=== PATIENT | female | born 1955 | race African-American/Black ===

== ENCOUNTER 2018-05-15 01:14 | Observation (INO) | payer OTHER ==
[2018-05-15 02:25] LABS: Hemoglobin 13.7 g/dL (12.0-16.0); Mean Corpuscular HGB CONC 33.2 g/dL (32.0-36.0); Mean Corpuscular Hemoglobin 30.1 pg (27.0-31.0); Mean Corpuscular Volume 90.5 fL (78.0-98.0); RBC Distribution Width 11.6 % (11.5-14.5); Red Blood Cell (RBC) Count 4.55 mill/uL (4.20-5.40); White Blood Cell (WBC) Count 8.1 thou/uL (4.8-10.8)
[2018-05-15] MEDS ORDERED: hydrALAZINE 20 MG/ML VIAL ONE (02:26)
[2018-05-15 02:34] LABS: #Basophils 0.1 thou/uL (0.0-0.2); #Eosinphils 0.4 thou/uL (0.0-0.7); #Lymphocytes 3.6 thou/uL (1.20-3.40); #Monocytes 0.7 thou/uL (0.11-0.59); #Neutrophils 3.4 thou/uL (1.40-6.50); %Basophils 1.2 % (0.0-1.0); %Lymphocytes 43.7 % (21.0-51.0); %Monocytes 8.9 % (0.0-10.0); %Neutrophils 41.3 % (42.0-75.0); ALT (SGPT) 15 U/L (8-55); AST (SGOT) 14 U/L (5-34); Albumin 3.5 g/dL (3.4-4.8); Alkaline Phosphatase 87 U/L (40-150); Anion Gap 11 mmol/L (10-20); BUN (Urea Nitrogen) 15 mg/dL (9.8-20.1); Bilirubin, Total 0.2 mg/dL (0.2-1.2); Calc. Creatinine Clearance 0 mL/min (70-130); Calcium 9.1 mg/dL (7.8-10.44); Carbon Dioxide 27 mmol/L (23-31); Chloride 100 mmol/L (98-107); Estimated GFR-MDRD 48; Globulin 3.7 g/dL (2.4-3.5); Glucose 545 mg/dL (80-115); Large Platelets SLIGHT; Lipase 44 U/L (8-78); MDiff Complete? YES; Mean Platelet Volume 13.6 fL (7.4-10.4); PLT Morphology Comment Appears Decreased; Platelet Count 122 thou/uL (130-400); Potassium 3.9 mmol/L (3.5-5.1); Protein, Total 7.2 g/dL (6.0-8.3); RBC Morphology Normal; Sodium 134 mmol/L (136-145)
[2018-05-15 02:38] LABS: Troponin I Less than 0.010 ng/mL (< 0.028)
[2018-05-15] MEDS ORDERED: Insulin Regular 300 UNITS/3 ML VIAL ONE (05:16)
--- NOTE | 2018-05-15 08:14 | RAD ---
PORTABLE CHEST 1 VIEW: Date: 05/15/18 Time: 0201 hours HISTORY: Nausea and vomiting. FINDINGS: Comparison made with exam of 02/14/16. The heart size is normal. The lungs are expanded without focal areas of consolidation, pneumothorax, or pleural effusions. Chronic changes are again seen. IMPRESSION: No acute process. POS: OFF
[2018-05-15] MEDS ORDERED: Dextrose 50% Abboject 50 ML SYRINGE SLOW IVP PRN (08:27)
[2018-05-15] MEDS ORDERED: Ondansetron ODT 4 MG TAB PO PRN (08:27)
[2018-05-15] MEDS ORDERED: HumaLOG 300 UNITS/3 ML VIAL SC PRN (08:27)
[2018-05-15] MEDS ORDERED: hydrALAZINE 20 MG/ML VIAL SLOW IVP PRN (08:27)
[2018-05-15] MEDS ORDERED: Dextrose 5% in Water 1,000 ML IV PRN (08:27)
[2018-05-15] MEDS ORDERED: Acetaminophen 325 MG TAB PO PRN (08:27)
[2018-05-15] MEDS ORDERED: Labetalol HCl 100 MG/20 ML VIAL SLOW IVP PRN (08:27)
[2018-05-15] MEDS: cloNIDine 0.1 MG TAB PO PRN ×2 (09:36→17:37)
[2018-05-15] MEDS: Enoxaparin Sodium 40 MG/0.4 ML SYRINGE SC SCH (09:37)
[2018-05-15] MEDS: Sodium Chloride 0.9% 1,000 ML IV SCH ×2 (09:37→17:38)
[2018-05-15] MEDS ORDERED: Prevnar 13-Val Conj/PF 0.5 ML SYRINGE IM ONE (10:00)
--- NOTE | 2018-05-15 10:09 | HP ---
PRIMARY CARE PHYSICIAN: Dr. Alvarez. CHIEF COMPLAINT: "I just did not look right." HISTORY OF PRESENT ILLNESS: Ms. Steinberg is a very pleasant 63-year-old female that has a history of h ypertension and diabetes mellitus. She was in her usual state of health until about a week ago. She says she ran out of medications on . However, according to the ER record, she ran o ut of medicines about a month ago, but nevertheless, her fiance says that she did not look quite righ t on the day of admission and felt like he better call paramedics to come check on her. When the par amedics came, they noticed that her blood pressure was elevated and that her blood sugar was also jeremie vated above 500 and recommended that she come to the ER for evaluation. When she came to the emergen cy room, her blood sugar was running in the 500s. Her blood pressure was initially over 200 systolic and she is being placed in observation for uncontrolled blood pressure as well as diabetes mellitus. She says she does have medical insurance in order to get her prescriptions, but she was unable to g et it because she had not made an appointment with her primary care physician. She denies having any chest pain or shortness of breath, no nausea, no vomiting. She has felt a little bit dizzy and had some increased thirst, but otherwise no other complaints. REVIEW OF SYSTEMS: All systems were reviewed and are negative except for that mentioned in the histo ry of present illness. PAST MEDICAL HISTORY: Significant for diabetes mellitus type 2, hypertension, and COPD. PAST SURGICAL HISTORY: She has had a . ALLERGIES: No known drug allergies. SOCIAL HISTORY: She is a former smoker. She quit several years ago. She denies any alcohol use. S he is engaged. She has three children. She would like to be a [employer] and her daughter of her heather ce is her surrogate decision maker. FAMILY HISTORY: Significant for asthma in her mother and diabetes mellitus in her father. CURRENT MEDICATIONS: Unknown. PHYSICAL EXAMINATION: GENERAL: She is alert and oriented. She appears to be in no acute distress. She is well-developed and well-nourished. VITAL SIGNS: Blood pressure was 184/82, heart rate 97, respiratory rate of 16, temperature is 97.8. HEENT: Pupils are equal, round, and reactive. Extraocular muscles are intact. Her sclerae are anic teric. Throat; no erythema, no exudates. NECK: No adenopathy, no bruits. LUNGS: Clear to auscultation. There is no wheezing, no rales. CARDIOVASCULAR: She had a normal S1 and S2. No S3 or S4. No murmurs, clicks, no rubs. ABDOMEN: Obese, it is soft, it is nontender and nondistended. Positive for bowel sounds. There is no rebound, no guarding, no organomegaly. EXTREMITIES: She has no edema or just trace edema, no calf tenderness. No joint effusions or crepit us. Her dorsalis pedis pulses are diminished, but palpable. NEUROLOGIC: Her cranial nerves II-XII are grossly intact as well as her muscle strength in both uppe r and lower extremities. SKIN/INTEGUMENT: There are no skin changes. No rash. LABORATORY DATA AND IMAGING DATA: CBC: White blood cell count 8.1, hemoglobin 13.7, hematocrit is 4 1.2, platelet count is 122. Sodium 134, potassium 3.9, chloride is 100, CO2 is 27, BUN of 15, creati nine of 1.34, glucose is 545, beta hydroxybutyrate was negative. She had an EKG which is by chin graham. Heart rate was 82. There were some voltage criteria for LVH and some baseline artifact. Chest x-ray; heart size is normal. There is no fluid in the fissures and no evidence of any increased pulm onary vascular markings. ASSESSMENT AND PLAN: This is a pleasant 63-year-old female that is being admitted for uncontrolled h ypertension and diabetes mellitus mainly due to medical noncompliance. 1. Hypertension. We will need to call [facility] in order to reconcile her medications. W e will restart these and adjust as needed. 2. Diabetes mellitus. Also, we will need to find out the names and doses of her medications. She s aid she was on Lantus insulin and also place her on a sliding scale and adjust again medications as n eeded. 3. Chronic obstructive pulmonary disease. DuoNebs will be made available and she will also be place d on deep venous thrombosis prophylaxis. Hopefully, once she is restarted on her medications, she ca n be discharged either later on this evening or in the morning. We will also give her at least a lit er of two of IV fluids, given her uncontrolled blood glucose.
[2018-05-15] MEDS: HumaLOG 300 UNITS/3 ML VIAL SC PRN ×2 (12:01→17:38)
[2018-05-16] MEDS: Sodium Chloride 0.9% 1,000 ML IV SCH ×2 (00:55→09:49)
[2018-05-16 04:57] LABS: #Eosinphils 0.5 thou/uL (0.0-0.7); #Lymphocytes 3.3 thou/uL (1.20-3.40); #Monocytes 0.6 thou/uL (0.11-0.59); #Neutrophils 3.3 thou/uL (1.40-6.50); %Basophils 0.5 % (0.0-1.0); %Eosinophils 6.6 % (0.0-10.0); %Lymphocytes 42.3 % (21.0-51.0); %Monocytes 8.2 % (0.0-10.0); %Neutrophils 42.4 % (42.0-75.0); Hemoglobin 11.8 g/dL (12.0-16.0); Mean Corpuscular HGB CONC 32.9 g/dL (32.0-36.0); Mean Corpuscular Hemoglobin 29.8 pg (27.0-31.0); Mean Corpuscular Volume 90.5 fL (78.0-98.0); Mean Platelet Volume 14.1 fL (7.4-10.4); PLT Morphology Comment Appears Decreased; Platelet Count 110 thou/uL (130-400); RBC Distribution Width 11.5 % (11.5-14.5); RBC Morphology Normal; Red Blood Cell (RBC) Count 3.94 mill/uL (4.20-5.40); White Blood Cell (WBC) Count 7.8 thou/uL (4.8-10.8)
[2018-05-16 04:58] LABS: Anion Gap 12 mmol/L (10-20); BUN (Urea Nitrogen) 14 mg/dL (9.8-20.1); Calc. Creatinine Clearance 101 mL/min (70-130); Calcium 8.4 mg/dL (7.8-10.44); Carbon Dioxide 21 mmol/L (23-31); Chloride 107 mmol/L (98-107); Estimated GFR-MDRD 72; Glucose 275 mg/dL (80-115); Potassium 3.8 mmol/L (3.5-5.1); Sodium 136 mmol/L (136-145)
[2018-05-16] MEDS: HumaLOG 300 UNITS/3 ML VIAL SC PRN ×3 (05:59→15:14)
[2018-05-16] MEDS ORDERED: Carvedilol 25 MG TAB PO SCH (09:00)
[2018-05-16] MEDS ORDERED: INSULIN GLARGINE HUM REC ANLOG SC SCH (09:00)
[2018-05-16] MEDS ORDERED: Amlodipine 10 MG TAB PO SCH (09:00)
[2018-05-16] MEDS ORDERED: Atorvastatin Calcium 40 MG TAB PO SCH (09:00)
[2018-05-16] MEDS ORDERED: cloNIDine 0.1 MG TAB PO SCH (09:00)
[2018-05-16] MEDS: Enoxaparin Sodium 40 MG/0.4 ML SYRINGE SC SCH (11:44)
[2018-05-16] MEDS ORDERED: Lisinopril 20 MG TAB PO SCH (11:45)
[2018-05-16 11:52] VITALS: BP 178/93
[2018-05-16 12:08] VITALS: TEMP 97.9
--- NOTE | 2018-05-16 13:50 | PDOC.PN ---
- Subjective Encounter Start Date: 05/16/18 Encounter Start Time: 13:48 Ms. Steinberg was seen today in follow-up of uncontrolled diabetes and hypertension. she does not have any complaints this morning. - Objective Resuscitation Status - Order Detail: 05/15/18 12:20 Resuscitation Status Routine Resuscitation Status: FULL: Full Resuscitation Discussed with: per prior order MAR Reviewed: Yes Vital Signs & Weight: Vital Signs (12 hours) Temp Pulse Resp BP BP Pulse Ox 05/16/18 13:01 178/93 H 05/16/18 12:07 97.9 F 78 20 178/93 H 94 L 05/16/18 11:43 82 178/93 H 05/16/18 07:40 99.0 F 82 18 182/92 H 94 L 05/16/18 04:26 97.4 F L 76 16 163/92 H 94 L Weight Weight 237 lb 3.2 oz I&O: 05/15/18 05/16/18 05/17/18 06:59 06:59 06:59 Intake Total 2825 240 Balance 2825 240 Result Diagrams: 05/16/18 03:43 05/16/18 03:43 Additional Labs: Accuchecks 05/16/18 05/15/18 05/15/18 04:30 20:52 19:45 POC Glucose 261 H 367 H 301 H 05/15/18 17:18 POC Glucose 252 H Phys Exam - Physical Examination HEENT: PERRLA Respiratory: no wheezing, no rales, no rhonchi, clear to auscultation bilateral Cardiovascular: RRR, no significant murmur, no rub Gastrointestinal: soft, non-tender, no distention, positive bowel sounds Musculoskeletal: no edema Dx/Plan (1) Hypertension Code(s): I10 - ESSENTIAL (PRIMARY) HYPERTENSION Status: Acute (2) Diabetes mellitus type 2 with complications, uncontrolled Code(s): E11.8 - TYPE 2 DIABETES MELLITUS WITH UNSPECIFIED COMPLICATIONS; E11.65 - TYPE 2 DIABETES MELLITUS WITH HYPERGLYCEMIA Status: Chronic (3) COPD (chronic obstructive pulmonary disease) Status: Chronic - Plan * DM- better after re-starting insulin. * HTN- blood pressure is still elevated, but better * She does not require continued inpatient care * She is stable for discharge home.
[2018-05-16 15:32] VITALS: BMI 39.5
[2018-05-16] MEDS ORDERED: Insulin Regular 300 UNITS/3 ML VIAL SC SCH (16:30)
[2018-05-16] MEDS ORDERED: Mometasone 100 MCG HFA INHALER INH SCH (18:30)
[2018-05-16] MEDS ORDERED: Insulin Glargine 85 UNITS in Pre-Filled Syringe 1 EACH SC SCH (21:00)
[2018-05-16] MEDS ORDERED: hydrALAZINE 25 MG TAB PO SCH (21:00)
[2018-05-17] MEDS ORDERED: NIFEdipine XL 60 MG TAB PO SCH (09:00)
[2018-05-17] MEDS ORDERED: Lisinopril 20 MG TAB PO SCH (09:00)
--- NOTE | 2018-05-17 13:25 | DIS ---
DATE OF ADMISSION: 05/15/2018 DATE OF DISCHARGE: 05/16/2018 PRIMARY CARE PHYSICIAN: Dr. Alvarez. DISCHARGE DISPOSITION: Home. PRIMARY DISCHARGE DIAGNOSES: 1. Diabetes mellitus, uncontrolled. 2. Hypertension, uncontrolled. 3. Medical noncompliance. 4. Chronic obstructive pulmonary disease. 5. Morbid obesity. DISCHARGE MEDICATIONS: These include the same as that on admission and include: 1. Nifedipine ER 60 mg daily. 2. Lisinopril 20 mg daily. 3. Insulin regular 15 units twice a day with meals. 4. Lantus insulin 85 units twice a day. 5. Hydralazine 25 mg twice daily. 6. Flovent 220 mcg inhaled twice a day. 7. Clonidine 0.1 mg twice a day. 8. Carvedilol 25 mg twice a day. 9. Atorvastatin 40 mg daily. 10. Amlodipine 5 mg daily. CODE STATUS: Full code. ALLERGIES: NO KNOWN DRUG ALLERGIES. HOSPITAL COURSE: Ms. Steinberg is a pleasant 63-year-old female, who presented to the emergency room after feeling weak. She says that she has been out of her usual medications for at least a week. When she arrived at the emergency room, her blood sugar was over 500 and her blood pressure systolic was over 200. She was placed in observation and her regular medications were reinstituted. Her blood glucose improved down to the mid 200 range, and her blood pressure levels were improved, although not optimally controlled. She is safe for discharge home for further titration and adjustment of medications in the outpatient setting. I suspect that once she is back on her medications for a few days, both her blood pressure and blood sugar should normalize even at her home dose. A month worth of her medications were sent to the pharmacy of her choice and she is being discharged today to have early followup. Job ID: [id number]
--- NOTE | 2018-05-19 19:33 | EKG ---
Test Reason : ER INDICATION Blood Pressure : / mmHG Vent. Rate : 082 BPM Atrial Rate : 082 BPM P-R Int : 160 ms QRS Dur : 076 ms QT Int : 376 ms P-R-T Axes : 049 -13 149 degrees QTc Int : 439 ms Normal sinus rhythm Possible Left atrial enlargement Left ventricular hypertrophy Left axis deviation Nonspecific T wave abnormality Abnormal ECG Motion artifact Confirmed by SAMSON WOOD DO ([id number]), material expeditor JASSI HARTMANN ([id number]) on 05/19/2018 7:32:25 PM Referred By: Confirmed By:SAMSON WOOD DO
== END 2018-05-16 16:22 | disposition home or self-care (01) ==
LOC: ERS 01:14 → ERHOLD 05:14 → T4-B 08:50
PROVIDERS: ADMIT Hospitalist; ATTEND Hospitalist
DX: E11.65 Type 2 diabetes mellitus with hyperglycemia (principal); I10 Essential (primary) hypertension; J44.9 Chronic obstructive pulmonary disease, unspecified; E66.01 Morbid (severe) obesity due to excess calories; Z68.39 Body mass index [BMI] 39.0-39.9, adult; Z87.891 Personal history of nicotine dependence; Z79.899 Other long term (current) drug therapy; Z91.14 Patient's other noncompliance with medication regimen
CPT/HCPCS: 36415; 36416; 71045; 80048; 80053; 82010; 82553; 83690; 84484; 85025; 90471; 90662; 90670; 93005; 96361; 96372; 96374; G0008; G0009; G0378; J0360; J1650; J1815

== ENCOUNTER 2018-09-10 19:09 | Observation (INO) | payer OTHER ==
[2018-09-10] MEDS ORDERED: hydrOXYzine Pamoate 25 mg Capsule ONE (20:01)
[2018-09-10] MEDS ORDERED: Magnesium 2 GM/50 ML BAG (IN WATER) ONE (20:01)
[2018-09-10 20:35] LABS: Troponin I Less than 0.010 ng/mL (< 0.028)
[2018-09-10] MEDS ORDERED: Ondansetron PF 4 MG/2 ML Vial IVP PRN (21:09)
[2018-09-10] MEDS ORDERED: Acetaminophen 325 MG TAB PO PRN ×2 (21:09→21:36)
[2018-09-10] MEDS ORDERED: Ondansetron ODT 4 MG TAB SL PRN (21:09)
[2018-09-10] MEDS ORDERED: Dextrose 50% Abboject 50 ML SYRINGE SLOW IVP PRN (21:34)
[2018-09-10] MEDS ORDERED: Dextrose 5% in Water 1,000 ML IV PRN (21:34)
[2018-09-10] MEDS ORDERED: Senokot S 8.6-50 MG TAB PO PRN (21:36)
[2018-09-10 22:17] VITALS: BMI 42.1
[2018-09-11] MEDS: methylPREDNISolone Sod Succ 40 MG VIAL IVP SCH ×5 (00:30→23:27)
--- NOTE | 2018-09-11 01:36 | HP ---
PRIMARY CARE PHYSICIAN: Ghada Alvarez MD CHIEF COMPLAINT: Shortness of breath, wheezing. HISTORY OF PRESENT ILLNESS: Ms. Steinberg is a 63-year-old female who is a transfer from [place] [facility] for COPD exacerbation. The patient reported that she has been short of breath for the last several days, reports a cough as well for the last 3 days, some dyspnea with exertion. Does have a history pertinent for COPD, asthma, bronchitis, hypertension, diabetes type 2, has been admitted in the past for COPD exacerbation. In [place], she was given Solu-Medrol, continuous DuoNeb, azithromycin IV piggyback with only minimal improvement; therefore, the patient was sent to [facility] Emergency Room for admission for COPD exacerbation. On arrival here, she had bilateral wheezing and diminished breath sounds in the bases and she was admitted to the observation unit for further management. She was given a DuoNeb in our emergency room and magnesium, IV piggyback. Reports that she does feel better, but is still wheezing. Has been 93% to 96% on room air. PAST MEDICAL HISTORY: As above. COPD, asthma, bronchitis, hypertension, type 2 diabetes. PAST SURGICAL HISTORY: . PSYCHIATRIC HISTORY: None. SOCIAL HISTORY: Denies alcohol or drug use. She is a former tobacco smoker. REVIEW OF SYSTEMS: CONSTITUTIONAL: The patient denies chills. Does report a subjective fever. Denies malaise. EYES: Denies any eye pain, eye changes, or vision changes. ENT: Denies rhinorrhea or sore throat. CARDIOVASCULAR: Denies chest pain or palpitations. RESPIRATORY: Does report a cough, shortness of breath and wheezing. GI: Denies any abdominal pain, nausea, vomiting, constipation, or diarrhea. : Denies dysuria or hematuria. MUSCULOSKELETAL: Denies any myalgias or fall injuries. SKIN: Denies any rashes or skin changes. NEUROLOGIC: Negative review of systems. ENDOCRINE: Negative review of systems. Notes, all other review of systems are negative unless mentioned in the HPI. PHYSICAL EXAMINATION: VITAL SIGNS: Blood pressure 145/79, pulse is 94, respirations 24, temperature is 97.9, pulse ox is 93% on room air. GENERAL: The patient is alert and oriented to person, place, and time, is in no apparent distress. HEENT: Head is atraumatic and normocephalic. Eyes; eyelids are normal to inspection. Pupils are equally round and reactive to light. Extraocular muscles are intact. ENT; mouth exam is normal mouth. Mucous membranes are moist. NECK: Normal range of motion. Trachea is midline. RESPIRATORY/CHEST: Wheezing present in upper lobes. Breath sounds are diminished in lower lobes. Chest expansion is equal. Chest movement is symmetrical. CARDIOVASCULAR: Regular heart rate and rhythm. Heart sounds are normal. ABDOMEN: Nontender. On palpation, bowel sounds are heard. BACK: Normal inspection. Normal range of motion. No tenderness. EXTREMITIES: Upper extremity; normal inspection, normal range of motion. Radial pulses equal bilaterally. Lower extremity; normal inspection, normal range of motion. Pedal pulses equal bilaterally. No edema is noted. NEURO: The patient is oriented to person, place, and time. Speech is normal. No focal motor or sensory deficits. SKIN: Warm, dry, normal in color. PSYCH: Has a normal affect. ALLERGIES: NONE. HOME MEDICATIONS: 1. Amlodipine 5 mg p.o. daily. 2. Coreg 25 mg p.o. b.i.d. 3. Catapres 0.1 mg p.o. b.i.d. 4. Flovent 220 mcg inhalation b.i.d. 5. Apresoline 25 mg p.o. b.i.d. 6. Lantus 85 units subcu b.i.d. 7. Humulin R 15 units subcu b.i.d. 8. Lisinopril 20 mg p.o. daily. 9. Nifedipine 60 mg ER p.o. daily. PERTINENT LABORATORY DATA: White blood cell count is 9.5, hemoglobin 12.0, hematocrit 37.7, and platelet count is 198. Sodium is 143, potassium is 4.2, chloride is 105, carbon dioxide is 27, anion gap is 15, BUN is 16, creatinine is 0.92, estimated GFR is 74, glucose is 113. Troponin x1 is undetectable. Albumin is 3.8. ASSESSMENT AND PLAN: 1. Chronic obstructive pulmonary disease exacerbation. We will continue DuoNeb q.4 hours while awake. Solu-Medrol 40 mg q.6 hours. We will continue azithromycin 500 mg IV piggyback daily. 2. Diabetes type 2. We will continue home medication. We will add a sliding scale insulin coverage. We will check glucose q.6 while on steroids. 3. Hypertension. We will restart home medication. We will add p.r.n. coverage as needed. 4. Gastrointestinal and deep venous thrombosis prophylaxis will be started. 5. Hospital course will be dependent on clinical findings. Job ID: [id number]
[2018-09-11 04:21] LABS: #Lymphocytes 1.2 thou/uL (1.20-3.40); #Neutrophils 5.6 thou/uL (1.40-6.50); %Basophils 0.1 % (0.0-1.0); %Eosinophils 0.1 % (0.0-10.0); %Lymphocytes 17.2 % (21.0-51.0); %Monocytes 0.3 % (0.0-10.0); %Neutrophils 82.4 % (42.0-75.0); Hemoglobin 11.3 g/dL (12.0-16.0); Mean Corpuscular HGB CONC 32.5 g/dL (32.0-36.0); Mean Corpuscular Hemoglobin 29.5 pg (27.0-31.0); Mean Corpuscular Volume 90.8 fL (78.0-98.0); Mean Platelet Volume 10.9 fL (7.4-10.4); Platelet Count 179 thou/uL (130-400); RBC Distribution Width 11.9 % (11.5-14.5); Red Blood Cell (RBC) Count 3.82 mill/uL (4.20-5.40); White Blood Cell (WBC) Count 6.8 thou/uL (4.8-10.8)
[2018-09-11 04:40] LABS: ALT (SGPT) 12 U/L (8-55); AST (SGOT) 12 U/L (5-34); Albumin 3.4 g/dL (3.4-4.8); Alkaline Phosphatase 102 U/L (40-150); Anion Gap 12 mmol/L (10-20); BUN (Urea Nitrogen) 22 mg/dL (9.8-20.1); Bilirubin, Total 0.2 mg/dL (0.2-1.2); Calc. Creatinine Clearance 91 mL/min (70-130); Calcium 9.1 mg/dL (7.8-10.44); Carbon Dioxide 26 mmol/L (23-31); Chloride 105 mmol/L (98-107); Estimated GFR-MDRD 57; Globulin 3.6 g/dL (2.4-3.5); Glucose 403 mg/dL (80-115); Magnesium 1.9 mg/dL (1.6-2.6); Potassium 4.5 mmol/L (3.5-5.1); Sodium 138 mmol/L (136-145)
[2018-09-11] MEDS: HumaLOG 300 UNITS/3 ML VIAL SC PRN ×3 (05:37→18:27)
[2018-09-11] MEDS: Enoxaparin Sodium 40 MG/0.4 ML SYRINGE SC SCH (09:07)
[2018-09-11] MEDS: Insulin Glargine 85 UNITS in Pre-Filled Syringe 1 EACH SC SCH (09:07)
[2018-09-11] MEDS: Famotidine 20 MG TAB PO SCH ×2 (09:07→20:26)
[2018-09-11] MEDS ORDERED: Lisinopril 20 MG TAB PO SCH (10:00)
[2018-09-11] MEDS ORDERED: Amlodipine 5 MG TAB PO SCH (10:00)
[2018-09-11] MEDS: guaiFENesin ER 600 MG TAB PO PRN (12:24)
[2018-09-11] MEDS: hydrALAZINE 25 MG TAB PO SCH (17:22)
--- NOTE | 2018-09-11 17:53 | PRG ---
DATE OF SERVICE: 09/11/2018 SUBJECTIVE: Ms. Steinberg is a pleasant 63-year-old female with past medical history significant for COPD, hypertension, asthmatic bronchitis, and type 2 diabetes, who presented to the hospital with a 3-day history of worsening cough and dyspnea on exertion. She has been admitted with acute COPD exacerbation. This morning, she continues to complain of productive cough as well as wheezing and shortness of breath. She does say she is somewhat improved, although does not seem to be near her baseline at this time. She denies any chest pain. She denies any orthopnea. She denies any nausea, vomiting, or chills. OBJECTIVE: VITAL SIGNS: Blood pressure 148/67, pulse is 104, O2 saturation is 97% on room air. GENERAL: The patient is a morbidly obese female, sitting up in bed, in no acute distress. HEENT: Head is atraumatic and normocephalic. Mucous membranes are moist. NECK: Trachea is midline. No JVD. No carotid bruits. CV: S1, S2. Regular rate and rhythm. No appreciable murmurs, rubs, or gallops. LUNGS: Regular respiratory rate and pattern, expiratory wheezes heard throughout anterior and posterior lung curtis. No crackles. ABDOMEN: Soft, obese, nontender. Normal bowel sounds. EXTREMITIES: No lower extremity pitting edema. +2 DP pulses bilaterally. SKIN: No sign of rash or infection. LABORATORY DATA: White blood cell count 6.8, hemoglobin 11.3, hematocrit 34.6. Sodium 138, potassium 4.5, chloride 105, carbon dioxide 26, creatinine 1.15. Liver function enzymes within normal limit. BNP 123. Troponin is negative. ASSESSMENT: 1. Shortness of breath and wheezing, secondary to acute chronic obstructive pulmonary disease exacerbation. 2. Type 2 diabetes mellitus. 3. Hypertension. 4. Abnormal EKG with left bundle-branch block. 5. History of tobacco abuse. PLAN: At this time, we will need to continue pulmonary toilet including IV Solu-Medrol and IV antibiotics. We will have to hold beta-alba secondary to active wheezing. We will titrate other antihypertensives appropriately. We will continue q.6 hours glucose checks as expect hyperglycemia while the patient is receiving IV steroids. I anticipate discharge tomorrow after another 24 hours of breathing treatments and supportive care. Job ID: [id number]
[2018-09-11] MEDS ORDERED: Azithromycin 500 MG in Sodium Chloride 0.9% 250 ML 250 ML IVPB SCH (18:00)
[2018-09-11] MEDS: cloNIDine 0.1 MG TAB PO SCH (20:26)
[2018-09-11] MEDS ORDERED: Insulin Glargine 85 UNITS in Pre-Filled Syringe 1 EACH SC SCH (21:00)
[2018-09-12] MEDS: guaiFENesin ER 600 MG TAB PO PRN (01:04)
[2018-09-12 05:00] LABS: #Lymphocytes 1.9 thou/uL (1.20-3.40); #Monocytes 0.5 thou/uL (0.11-0.59); #Neutrophils 11.4 thou/uL (1.40-6.50); %Basophils 0.1 % (0.0-1.0); %Eosinophils 0.1 % (0.0-10.0); %Lymphocytes 13.5 % (21.0-51.0); %Monocytes 3.7 % (0.0-10.0); %Neutrophils 82.6 % (42.0-75.0); Mean Corpuscular HGB CONC 32.6 g/dL (32.0-36.0); Mean Corpuscular Hemoglobin 29.5 pg (27.0-31.0); Mean Corpuscular Volume 90.5 fL (78.0-98.0); Mean Platelet Volume 11.4 fL (7.4-10.4); Platelet Count 189 thou/uL (130-400); RBC Distribution Width 12.1 % (11.5-14.5); Red Blood Cell (RBC) Count 3.72 mill/uL (4.20-5.40); White Blood Cell (WBC) Count 13.8 thou/uL (4.8-10.8)
[2018-09-12] MEDS: methylPREDNISolone Sod Succ 40 MG VIAL IVP SCH ×2 (05:14→12:01)
[2018-09-12 05:16] LABS: ALT (SGPT) 9 U/L (8-55); AST (SGOT) 13 U/L (5-34); Albumin 3.4 g/dL (3.4-4.8); Alkaline Phosphatase 95 U/L (40-150); Anion Gap 11 mmol/L (10-20); BUN (Urea Nitrogen) 29 mg/dL (9.8-20.1); Bilirubin, Total 0.3 mg/dL (0.2-1.2); Calc. Creatinine Clearance 92 mL/min (70-130); Calcium 9.5 mg/dL (7.8-10.44); Carbon Dioxide 26 mmol/L (23-31); Chloride 105 mmol/L (98-107); Estimated GFR-MDRD 58; Globulin 3.7 g/dL (2.4-3.5); Glucose 236 mg/dL (80-115); Potassium 4.3 mmol/L (3.5-5.1); Protein, Total 7.1 g/dL (6.0-8.3); Sodium 138 mmol/L (136-145)
[2018-09-12] MEDS: HumaLOG 300 UNITS/3 ML VIAL SC PRN ×2 (05:16→13:06)
[2018-09-12] MEDS: hydrALAZINE 25 MG TAB PO SCH (08:36)
[2018-09-12] MEDS: cloNIDine 0.1 MG TAB PO SCH (08:36)
[2018-09-12] MEDS: Famotidine 20 MG TAB PO SCH (08:37)
[2018-09-12] MEDS: Insulin Glargine 85 UNITS in Pre-Filled Syringe 1 EACH SC SCH (08:38)
[2018-09-12] MEDS: Enoxaparin Sodium 40 MG/0.4 ML SYRINGE SC SCH (08:38)
[2018-09-12] MEDS ORDERED: Amlodipine 10 MG TAB PO SCH (09:00)
[2018-09-12] MEDS ORDERED: Lisinopril 20 MG TAB PO SCH (09:00)
[2018-09-12] MEDS ORDERED: NIFEdipine XL 30 MG TAB PO SCH (09:00)
[2018-09-12 09:13] VITALS: TEMP 97.9
[2018-09-12] MEDS ORDERED: Carvedilol 6.25 MG TAB PO SCH (09:45)
[2018-09-12 12:07] VITALS: BP 162/68
--- NOTE | 2018-09-12 21:20 | DIS ---
DATE OF ADMISSION: 09/10/2018 DATE OF DISCHARGE: 09/12/2018 PRIMARY CARE PHYSICIAN: Ghada Alvarez MD ALLERGIES: NO KNOWN DRUG ALLERGIES. CHIEF COMPLAINT: Shortness of breath and cough. FINAL DIAGNOSES: 1. Acute chronic obstructive pulmonary disease exacerbation, resolved. 2. Type 2 diabetes mellitus. 3. Obesity. 4. Hypertension. 5. Abnormal EKG with left bundle-branch block. 6. History of tobacco abuse. LABORATORY RESULTS: White blood cell count 13.8, hemoglobin 11, hematocrit 33.7, and platelets 189. Sodium 138, potassium 4.3, creatinine 1.14, BUN 29, glucose 206, AST 13, ALT 9, alkaline phosphatase 95, and albumin 3.4. IMAGING RESULTS: Chest x-ray performed in [place] showed mild pulmonary vascular congestion. No consolidation or pleural effusion. CONSULTATIONS: None. HOSPITAL COURSE: The patient is a pleasant, morbidly obese female, with past medical history significant for many year history of tobacco abuse, quit several years ago, COPD, hypertension, and diabetes mellitus, who presented to the hospital in transfer from [place] with complaints of shortness of breath and wheezing. She was transferred to our facility for higher level of care. She was admitted with acute COPD exacerbation. The patient was given scheduled DuoNebs, IV Solu-Medrol, IV azithromycin, and after 48 hours of treatment, the patient's wheezing did finally resolve. Her cough is much improved. Her beta-alba was held while she was actively wheezing. In the course of her workup, EKG performed this hospitalization shows a new left bundle-branch block when compared to previous EKGs. The patient has had no chest pain, and her BNP was not elevated. The patient's symptoms completely resolved with pulmonary toilet. PHYSICAL EXAMINATION: VITAL SIGNS: Blood pressure 162/68, pulse is 85, and O2 saturation is 98% on room air. GENERAL: The patient is a morbidly obese female, sitting up, resting comfortably in bed. HEENT: Atraumatic and normocephalic. Eye movements intact. NECK: Supple. No lymphadenopathy. RESPIRATORY: Regular respiratory rate and pattern, overall clear to auscultation bilaterally. Only faint occasional wheeze heard. CARDIOVASCULAR: S1 and S2. Regular rate and rhythm. No appreciable murmurs, rubs, or gallops. GI: Soft and nontender. Normal bowel sounds. PERIPHERAL VASCULAR: She has no lower extremity pitting edema. Palpable pulses bilateral. MUSCULOSKELETAL: No joint effusion or swelling. NEUROLOGIC: Awake and alert. Cranial nerves 2 through 12 are intact. No focal deficits. SKIN: Warm and dry. No skin discoloration or rashes. CONDITION AT DISCHARGE: Stable. DISCHARGE MEDICATIONS: Her home medication regimen will be continued including; 1. Amlodipine 5 mg p.o. daily. 2. Coreg 25 mg p.o. b.i.d. 3. Catapres 0.1 mg p.o. b.i.d. 4. Flovent 220 mcg inhalation b.i.d. 5. Apresoline 25 mg p.o. b.i.d. 6. Lantus 85 units subcu b.i.d. 7. Humulin 15 units subcu b.i.d. 8. Lisinopril 20 mg p.o. daily. 9. Nifedipine 60 mg ER 1 tablet p.o. daily. New medications will include; 1. A tapering Medrol Dosepak. 2. Azithromycin 250 mg tablet 1 p.o. daily for the next 4 days. DISCHARGE DISPOSITION: Home. PLAN: The patient will follow up with primary care physician, Dr. Alvarez. I have explained the abnormal findings on her EKG to the patient. She does understand that based on her risk factors, she may need cardiac evaluation at some point, including a stress test to rule out underlying coronary artery disease. The patient is a diabetic, former smoker, and does have hypertension. This was discussed at length with the patient. For now, her acute COPD exacerbation is resolved and the patient will be discharged home in good condition. Care discussed with Dr. Richter, who agrees with the above. Job ID: [id number]
== END 2018-09-12 16:12 | disposition home or self-care (01) ==
LOC: ERS 19:09 → ONC 21:05
PROVIDERS: ADMIT Emergency Medicine; ATTEND Emergency Medicine
DX: J44.1 Chronic obstructive pulmonary disease with (acute) exacerbation (principal); I10 Essential (primary) hypertension; I44.7 Left bundle-branch block, unspecified; E11.9 Type 2 diabetes mellitus without complications; E66.9 Obesity, unspecified; Z68.41 Body mass index [BMI] 40.0-44.9, adult; Z87.891 Personal history of nicotine dependence; Z79.51 Long term (current) use of inhaled steroids; Z79.52 Long term (current) use of systemic steroids; Z79.2 Long term (current) use of antibiotics; Z79.4 Long term (current) use of insulin; Z79.899 Other long term (current) drug therapy; Z98.890 Other specified postprocedural states
CPT/HCPCS: 36415; 36416; 80053; 83735; 83880; 85025; 94640; 96365; 96367; 96372; 96375; 96376; G0378; J0456; J1650; J1825; J2920; J3475; J7050; J7620; Q0177

== ENCOUNTER 2020-02-25 14:56 | Outpatient (CLI) | payer MEDICARE, MEDICAID ==
--- NOTE | 2020-02-25 16:23 | BD ---
Exam: DEXA Bone Density 02/25/20 HISTORY: Postmenopausal screening. Lumbar Spine: BMD (g/cm2) T-SCORE L1 0.944 -0.4 L2 0.974 -0.5 L3 1.078 -0.1 L4 1.134 0.7 L1-L4 1.039 -0.1 Femoral Neck: 0.647 -1.4 Total Femur: 0.742 -1.6 Impression: 1. Bone mineral density of the femoral neck indicates osteopenia. 2. Bone mineral density of the lumbar spine within normal range. Ten year fracture risk: Major osteoporotic fracture: 9.1%. Hip fracture: 1.2%. POS: AH
--- NOTE | 2020-02-25 16:52 | MMO ---
Bilateral MAMMO Bilat Screen [facility]. CLINICAL HISTORY: Patient is 64 years old and is seen for screening. The patient has no family history of breast cancer. The patient has no personal history of cancer. VIEWS: The views performed were: bilateral craniocaudal; bilateral craniocaudal with tomosynthesis; bilateral mediolateral oblique; and bilateral mediolateral oblique with tomosynthesis. This study has been interpreted with the assistance of computer-aided detection. MAMMOGRAM FINDINGS: The breasts are almost entirely fat. There are no suspicious masses, suspicious calcifications, or new areas of architectural distortion. IMPRESSION: THERE IS NO MAMMOGRAPHIC EVIDENCE OF MALIGNANCY. A ROUTINE FOLLOW-UP MAMMOGRAM IN 1 YEAR IS RECOMMENDED. THE RESULTS OF THIS EXAM WERE SENT TO THE PATIENT. ACR BI-RADS Category 1 - Negative MAMMOGRAPHY NOTE: 1. A negative mammogram report should not delay a biopsy if a dominant of clinically suspicious mass is present. 2. Approximately 10% to 15% of breast cancers are not detected by mammography. 3. Adenosis and dense breasts may obscure an underlying neoplasm. Reported by: DYLAN HORNE MD Electonically Signed: [id number]
== END 2020-02-25 14:57 | disposition home or self-care (01) ==
LOC: BICMAMMO 14:56
PROVIDERS: ATTEND Registered Nurse
DX: Z12.31 Encounter for screening mammogram for malignant neoplasm of breast (principal); Z13.820 Encounter for screening for osteoporosis; M85.859 Other specified disorders of bone density and structure, unspecified thigh; Z78.0 Asymptomatic menopausal state
CPT/HCPCS: 77063; 77067; 77080

== ENCOUNTER 2020-10-30 02:17 | Inpatient (IN) | payer MEDICARE, MEDICAID ==
[2020-10-30] MEDS ORDERED: Dextrose 50% Abboject 50 ML SYRINGE SLOW IVP PRN (03:34)
[2020-10-30] MEDS ORDERED: Bisacodyl 5 MG TAB PO PRN (03:34)
[2020-10-30] MEDS ORDERED: Acetaminophen 325 MG TAB PO PRN (03:34)
[2020-10-30] MEDS ORDERED: Ondansetron PF 4 MG/2 ML Vial IVP PRN (03:34)
[2020-10-30] MEDS ORDERED: Dextrose 5% in Water 1,000 ML IV PRN (03:34)
[2020-10-30 04:10] VITALS: BMI 41.5
[2020-10-30] MEDS: GUAIFENESIN SF SOLN 200 MG/10 ML UDCUP PO PRN ×2 (05:26→16:25)
[2020-10-30] MEDS: Furosemide 40 MG/4 ML VIAL SLOW IVP SCH ×2 (05:30→12:44)
[2020-10-30] MEDS: methylPREDNISolone Sod Succ 40 MG VIAL IVP SCH ×4 (05:30→23:19)
[2020-10-30] MEDS: HumaLOG 300 UNITS/3 ML VIAL SC PRN ×4 (05:31→21:16)
[2020-10-30] MEDS: Enoxaparin Sodium 40 MG/0.4 ML SYRINGE SC SCH (07:52)
[2020-10-30] MEDS: hydrALAZINE 25 MG TAB PO SCH (20:47)
[2020-10-30] MEDS: cloNIDine 0.1 MG TAB PO SCH (20:48)
[2020-10-30] MEDS: Carvedilol 25 MG TAB PO SCH (20:48)
[2020-10-30] MEDS ORDERED: INSULIN GLARGINE HUM REC ANLOG SC SCH (21:00)
[2020-10-30] MEDS ORDERED: [UNRECOGNIZED DRUG - OTHER] SC SCH (21:00)
[2020-10-30] MEDS ORDERED: Fluticasone Propionate HFA 220 MCG AER INH SCH (21:00)
[2020-10-30] MEDS: Lantus 1000 UNITS/10 ML VIAL SC SCH (21:16)
[2020-10-30] MEDS: cefTRIAXone\\ROCEPHIN 1 GM in Sodium Chloride 0.9% 100 ML IVPB SCH (23:19)
[2020-10-31] MEDS: HumaLOG 300 UNITS/3 ML VIAL SC PRN ×3 (06:06→20:56)
[2020-10-31] MEDS: Furosemide 40 MG/4 ML VIAL SLOW IVP SCH (06:06)
[2020-10-31] MEDS: methylPREDNISolone Sod Succ 40 MG VIAL IVP SCH ×2 (06:06→17:07)
[2020-10-31 06:08] LABS: #Lymphocytes 1.4 thou/uL (1.20-3.40); #Monocytes 0.6 thou/uL (0.11-0.59); #Neutrophils 11.4 thou/uL (1.40-6.50); %Basophils 0.2 % (0.0-1.0); %Eosinophils 0.1 % (0.0-10.0); %Lymphocytes 10.4 % (21.0-51.0); %Monocytes 4.3 % (0.0-10.0); Hemoglobin 11.4 g/dL (12.0-16.0); Mean Corpuscular HGB CONC 31.3 g/dL (32.0-36.0); Mean Corpuscular Hemoglobin 28.9 pg (27.0-31.0); Mean Corpuscular Volume 92.3 fL (78.0-98.0); Mean Platelet Volume 12.4 fL (7.4-10.4); Platelet Count 172 thou/uL (130-400); RBC Distribution Width 12.3 % (11.5-14.5); Red Blood Cell (RBC) Count 3.93 mill/uL (4.20-5.40); White Blood Cell (WBC) Count 13.4 thou/uL (4.8-10.8)
[2020-10-31 06:18] LABS: ALT (SGPT) 9 U/L (8-55); AST (SGOT) 17 U/L (5-34); Albumin 3.2 g/dL (3.4-4.8); Alkaline Phosphatase 105 U/L (40-110); Anion Gap 18 mmol/L (10-20); BUN (Urea Nitrogen) 42 mg/dL (9.8-20.1); Bilirubin, Total 0.2 mg/dL (0.2-1.2); Calc. Creatinine Clearance 56 mL/min (70-130); Calcium 8.6 mg/dL (7.8-10.44); Carbon Dioxide 24 mmol/L (23-31); Chloride 100 mmol/L (98-107); Globulin 4.3 g/dL (2.4-3.5); Glucose 372 mg/dL (80-115); Magnesium 1.8 mg/dL (1.6-2.6); Potassium 4.7 mmol/L (3.5-5.1); Protein, Total 7.5 g/dL (5.8-8.1); Sodium 137 mmol/L (136-145)
[2020-10-31 06:25] LABS: Troponin I 0.011 ng/mL (< 0.028)
[2020-10-31] MEDS: cloNIDine 0.1 MG TAB PO SCH ×2 (08:36→20:53)
[2020-10-31] MEDS: Amlodipine 5 MG TAB PO SCH (08:36)
[2020-10-31] MEDS: NIFEdipine XL 60 MG TAB PO SCH (08:36)
[2020-10-31] MEDS: Carvedilol 25 MG TAB PO SCH ×2 (08:36→20:54)
[2020-10-31] MEDS: hydrALAZINE 25 MG TAB PO SCH ×2 (08:36→20:53)
[2020-10-31] MEDS: Lisinopril 20 MG TAB PO SCH (08:36)
[2020-10-31] MEDS: Lantus 1000 UNITS/10 ML VIAL SC SCH ×2 (08:37→20:55)
[2020-10-31] MEDS: Enoxaparin Sodium 40 MG/0.4 ML SYRINGE SC SCH (08:37)
[2020-10-31] MEDS: Mometasone 200 MCG/PUFF (1 INHALER) INH SCH ×2 (08:58→19:21)
[2020-10-31] MEDS ORDERED: Amlodipine 10 MG TAB PO SCH (09:00)
[2020-10-31] MEDS ORDERED: NIFEDIPINE 60 MG PO SCH (09:00)
[2020-10-31] MEDS ORDERED: methylPREDNISolone Sod Succ 40 MG VIAL IVP SCH (09:00)
[2020-10-31] MEDS ORDERED: Azithromycin 250 MG TAB PO SCH (09:00)
[2020-10-31] MEDS ORDERED: Bacteriostatic Water 30 ML VIAL FS PRN (09:00)
[2020-10-31] MEDS: Guaifenesin DM 100-10/5 ML UDCUP PO PRN (20:57)
[2020-10-31] MEDS: cefTRIAXone\\ROCEPHIN 1 GM in Sodium Chloride 0.9% 100 ML IVPB SCH (23:29)
[2020-11-01] MEDS: methylPREDNISolone Sod Succ 40 MG VIAL IVP SCH ×2 (05:51→17:59)
[2020-11-01] MEDS: Guaifenesin DM 100-10/5 ML UDCUP PO PRN ×3 (05:54→23:37)
[2020-11-01 06:25] LABS: Hemoglobin A1c 7.9 % (4.0-6.0)
[2020-11-01] MEDS: Mometasone 200 MCG/PUFF (1 INHALER) INH SCH ×2 (07:18→22:57)
[2020-11-01] MEDS: NIFEdipine XL 60 MG TAB PO SCH (08:07)
[2020-11-01] MEDS: Amlodipine 5 MG TAB PO SCH (08:08)
[2020-11-01] MEDS: hydrALAZINE 25 MG TAB PO SCH ×2 (08:08→20:33)
[2020-11-01] MEDS: cloNIDine 0.1 MG TAB PO SCH ×2 (08:09→20:33)
[2020-11-01] MEDS: Enoxaparin Sodium 40 MG/0.4 ML SYRINGE SC SCH (08:09)
[2020-11-01] MEDS: Carvedilol 25 MG TAB PO SCH ×2 (08:09→20:33)
[2020-11-01] MEDS: Lisinopril 20 MG TAB PO SCH (08:09)
[2020-11-01] MEDS: Lantus 1000 UNITS/10 ML VIAL SC SCH ×2 (08:10→20:33)
[2020-11-01] MEDS: cefTRIAXone\\ROCEPHIN 1 GM in Sodium Chloride 0.9% 100 ML IVPB SCH (23:38)
[2020-11-02] MEDS: methylPREDNISolone Sod Succ 40 MG VIAL IVP SCH (06:09)
[2020-11-02] MEDS: Guaifenesin DM 100-10/5 ML UDCUP PO PRN (06:12)
[2020-11-02] MEDS: Mometasone 200 MCG/PUFF (1 INHALER) INH SCH (06:41)
[2020-11-02 07:04] LABS: #Lymphocytes 1.8 thou/uL (1.20-3.40); #Monocytes 0.8 thou/uL (0.11-0.59); #Neutrophils 9.6 thou/uL (1.40-6.50); %Eosinophils 0.2 % (0.0-10.0); %Lymphocytes 14.6 % (21.0-51.0); %Monocytes 6.4 % (0.0-10.0); %Neutrophils 78.8 % (42.0-75.0); Hemoglobin 11.7 g/dL (12.0-16.0); Mean Corpuscular HGB CONC 32.5 g/dL (32.0-36.0); Mean Corpuscular Hemoglobin 30.2 pg (27.0-31.0); Mean Corpuscular Volume 92.9 fL (78.0-98.0); Mean Platelet Volume 12.3 fL (7.4-10.4); Platelet Count 169 thou/uL (130-400); RBC Distribution Width 12.1 % (11.5-14.5); Red Blood Cell (RBC) Count 3.88 mill/uL (4.20-5.40); White Blood Cell (WBC) Count 12.2 thou/uL (4.8-10.8)
[2020-11-02 07:21] LABS: Anion Gap 12 mmol/L (10-20); BUN (Urea Nitrogen) 71 mg/dL (9.8-20.1); Calc. Creatinine Clearance 65 mL/min (70-130); Carbon Dioxide 32 mmol/L (23-31); Chloride 102 mmol/L (98-107); Glucose 77 mg/dL (80-115); Potassium 3.7 mmol/L (3.5-5.1); Sodium 142 mmol/L (136-145)
[2020-11-02] MEDS: Amlodipine 5 MG TAB PO SCH (09:14)
[2020-11-02] MEDS: hydrALAZINE 25 MG TAB PO SCH (09:15)
[2020-11-02] MEDS: NIFEdipine XL 60 MG TAB PO SCH (09:15)
[2020-11-02] MEDS: Carvedilol 25 MG TAB PO SCH (09:15)
[2020-11-02] MEDS: cloNIDine 0.1 MG TAB PO SCH (09:15)
[2020-11-02] MEDS: Enoxaparin Sodium 40 MG/0.4 ML SYRINGE SC SCH (09:16)
[2020-11-02] MEDS: Lantus 1000 UNITS/10 ML VIAL SC SCH (09:16)
[2020-11-02 13:25] VITALS: BP 144/70; TEMP 97.8
== END 2020-11-02 14:54 | disposition home or self-care (01) | DRG 191 ==
LOC: ERS 02:17 → T4-B 03:08 → OBSVTOIN 10-31 18:40
PROVIDERS: ADMIT Internal Medicine; ATTEND Internal Medicine
DX: J44.1 Chronic obstructive pulmonary disease with (acute) exacerbation (principal); N17.9 Acute kidney failure, unspecified; I10 Essential (primary) hypertension; E11.65 Type 2 diabetes mellitus with hyperglycemia; J20.9 Acute bronchitis, unspecified; Z86.73 Personal history of transient ischemic attack (TIA), and cerebral infarction without residual deficits; Z79.4 Long term (current) use of insulin; E78.5 Hyperlipidemia, unspecified; Z90.710 Acquired absence of both cervix and uterus
CPT/HCPCS: 36415; 36416; 80048; 80053; 83036; 83735; 83880; 84443; 84484; 85025; 87070; 87205; 93306; 94640; 96372; 96374; 96375; 96376; G0378; J0696; J1650; J1815; J1940; J2920; J3490; J7620

== ENCOUNTER 2021-06-09 19:24 | Inpatient (IN) | payer MEDICARE, MEDICAID ==
[2021-06-10] MEDS ORDERED: Piperacillin/Tazobactam 3.375 GM VIAL ONE (01:57)
[2021-06-10] MEDS ORDERED: Morphine 4 MG/ML VIAL SLOW IVP PRN ×2 (03:55→12:17)
[2021-06-10] MEDS ORDERED: Acetaminophen 325 MG TAB PO PRN ×2 (04:00→11:41)
[2021-06-10] MEDS ORDERED: Ondansetron PF 4 MG/2 ML Vial IVP PRN ×2 (04:00→11:41)
[2021-06-10] MEDS ORDERED: Ondansetron ODT 4 MG TAB SL PRN (04:00)
[2021-06-10 04:08] VITALS: BMI 41.5
[2021-06-10] MEDS: Sodium Chloride 0.9% 1,000 ML IV SCH ×3 (04:19→12:44)
[2021-06-10] MEDS ORDERED: Piperacillin/Tazobactam 3.375 GM in Sodium Chloride 0.9% 100 ML IVPB SCH ×2 (06:00→12:00)
[2021-06-10] MEDS ORDERED: Bupivacaine 0.25% 10 ML VIAL ONE (06:55)
[2021-06-10 07:03] LABS: SARS-CoV-2 NAA Rapid Test Not Detected (NotDetected)
[2021-06-10] MEDS ORDERED: Iothalamate Meglumine 60% 50 ML VIAL FS ONE (07:08)
[2021-06-10] MEDS ORDERED: Fentanyl 100 MCG/2 ML VIAL ONE (07:53)
[2021-06-10] MEDS ORDERED: HYDROmorphone 2 MG/ML VIAL ONE (08:23)
[2021-06-10] MEDS ORDERED: Ondansetron PF 4 MG/2 ML Vial ONE (08:30)
[2021-06-10] MEDS ORDERED: Glycopyrrolate 0.2 MG/ML 5 ML SYRINGE ONE (08:30)
[2021-06-10] MEDS ORDERED: Dexamethasone 20 MG/5 ML VIAL ONE (08:30)
[2021-06-10] MEDS ORDERED: PROPOFOL 200 MG/20 ML VIAL ONE (08:30)
[2021-06-10] MEDS ORDERED: ePHEDrine 50 MG/ML VIAL ONE (08:30)
[2021-06-10] MEDS ORDERED: Rocuronium Bromide 10 MG/ML (10ML VIAL) ONE (08:30)
[2021-06-10] MEDS ORDERED: HYDROmorphone 2 MG/ML VIAL SLOW IVP PRN (09:27)
[2021-06-10] MEDS ORDERED: Ondansetron HCl/PF 4 MG/2 ML Vial IVP PRN (09:27)
[2021-06-10] MEDS ORDERED: Meperidine HCl/PF 25 MG/ML VIAL SLOW IVP PRN (09:27)
[2021-06-10] MEDS ORDERED: Promethazine HCl 25 MG/ML VIAL IVPB PRN (09:27)
[2021-06-10] MEDS ORDERED: Promethazine HCl 25 MG/ML VIAL IM PRN ×2 (09:27→11:41)
[2021-06-10 10:46] LABS: #Eosinphils 0.1 thou/uL (0.0-0.7); #Lymphocytes 0.6 thou/uL (1.20-3.40); #Monocytes 0.4 thou/uL (0.11-0.59); #Neutrophils 10.1 thou/uL (1.40-6.50); %Basophils 0.3 % (0.0-1.0); %Eosinophils 1.1 % (0.0-10.0); %Lymphocytes 5.6 % (21.0-51.0); %Monocytes 3.1 % (0.0-10.0); %Neutrophils 89.9 % (42.0-75.0); Hemoglobin 11.1 g/dL (12.0-16.0); Mean Corpuscular HGB CONC 32.6 g/dL (32.0-36.0); Mean Corpuscular Hemoglobin 30.7 pg (27.0-31.0); Mean Corpuscular Volume 94.1 fL (78.0-98.0); Mean Platelet Volume 11.5 fL (7.4-10.4); Platelet Count 122 thou/uL (130-400); RBC Distribution Width 12.4 % (11.5-14.5); Red Blood Cell (RBC) Count 3.62 mill/uL (4.20-5.40); White Blood Cell (WBC) Count 11.2 thou/uL (4.8-10.8)
[2021-06-10 11:06] LABS: Anion Gap 13 mmol/L (10-20); BUN (Urea Nitrogen) 25 mg/dL (9.8-20.1); Calc. Creatinine Clearance 80 mL/min (70-130); Calcium 8.4 mg/dL (7.8-10.44); Carbon Dioxide 25 mmol/L (23-31); Chloride 108 mmol/L (98-107); Glucose 158 mg/dL (80-115); Magnesium 1.8 mg/dL (1.6-2.6); Potassium 4.2 mmol/L (3.5-5.1); Sodium 142 mmol/L (136-145)
[2021-06-10] MEDS ORDERED: Dextrose 5% in Water 1,000 ML IV PRN (11:41)
[2021-06-10] MEDS ORDERED: Dextrose 50% Abboject 50 ML SYRINGE SLOW IVP PRN (11:41)
[2021-06-10] MEDS ORDERED: Mag-Al 1200 mg/1200 mg/30 ML UDCUP PO PRN (11:41)
[2021-06-10] MEDS ORDERED: hydrALAZINE 20 MG/ML VIAL SLOW IVP PRN (11:41)
[2021-06-10] MEDS ORDERED: Calcium Carbonate 500 MG ChewTAB PO PRN (11:41)
[2021-06-10] MEDS ORDERED: Mometasone 200 MCG/Formoterol 5 MCG 120 PUFF INHALER INH SCH ×2 (11:41→18:30)
[2021-06-10] MEDS: Piperacillin/Tazobactam 3.375 GM in Sodium Chloride 0.9% 100 ML IVPB SCH ×2 (13:54→22:03)
[2021-06-10] MEDS ORDERED: NIFEdipine XL 60 MG TAB PO SCH (15:05)
[2021-06-10] MEDS ORDERED: HumaLOG 300 UNITS/3 ML VIAL SC PRN (16:11)
[2021-06-10] MEDS ORDERED: Electrolyte Replacement Protocol 1 EACH FS SCH (16:30)
[2021-06-10] MEDS ORDERED: Carvedilol 6.25 MG TAB PO SCH (17:00)
[2021-06-10] MEDS ORDERED: Lantus 1000 UNITS/10 ML VIAL SC SCH (17:00)
[2021-06-10] MEDS: Carvedilol 25 MG TAB PO SCH (17:17)
[2021-06-10] MEDS: HumaLOG 300 UNITS/3 ML VIAL SC PRN (17:17)
[2021-06-10] MEDS ORDERED: Electrolyte Replacement Protocol FS PRN (18:00)
[2021-06-10] MEDS ORDERED: Magnesium 2 GM/50 ML 2 GM in Premix Bag 1 BAG IVPB SCH (18:00)
[2021-06-10] MEDS ORDERED: Mometasone 100 MCG/PUFF (1 INHALER) INH SCH (18:30)
[2021-06-10] MEDS: Mometasone 200 MCG/Formoterol 5 MCG 120 PUFF INHALER INH SCH (19:20)
[2021-06-10] MEDS ORDERED: NIFEdipine XL 30 MG TAB PO SCH (21:00)
[2021-06-10] MEDS: Senokot S 8.6-50 MG TAB PO SCH (22:03)
[2021-06-10] MEDS: Famotidine 20 MG TAB PO SCH (22:04)
[2021-06-10] MEDS: Lisinopril 10 MG TAB PO SCH (22:04)
[2021-06-10] MEDS: Polyethylene Glycol 3350 17 GM Packet PO SCH (22:04)
[2021-06-10] MEDS: Famotidine/PF 20 mg/2ml Vial SLOW IVP SCH (22:04)
[2021-06-10] MEDS: Lantus 1000 UNITS/10 ML VIAL SC SCH (22:07)
[2021-06-11] MEDS: Sodium Chloride 0.9% 1,000 ML IV SCH ×3 (03:48→20:47)
[2021-06-11 05:03] LABS: #Lymphocytes 0.9 thou/uL (1.20-3.40); #Monocytes 0.8 thou/uL (0.11-0.59); #Neutrophils 9.3 thou/uL (1.40-6.50); %Eosinophils 0.2 % (0.0-10.0); %Lymphocytes 8.1 % (21.0-51.0); %Monocytes 7.7 % (0.0-10.0); %Neutrophils 84.1 % (42.0-75.0); Hemoglobin 10.4 g/dL (12.0-16.0); Mean Corpuscular HGB CONC 31.9 g/dL (32.0-36.0); Mean Platelet Volume 11.8 fL (7.4-10.4); Platelet Count 119 thou/uL (130-400); RBC Distribution Width 12.4 % (11.5-14.5); Red Blood Cell (RBC) Count 3.48 mill/uL (4.20-5.40)
[2021-06-11 05:20] LABS: ALT (SGPT) 138 U/L (8-55); AST (SGOT) 109 U/L (5-34); Albumin 2.9 g/dL (3.4-4.8); Alkaline Phosphatase 144 U/L (40-110); Anion Gap 9 mmol/L (10-20); BUN (Urea Nitrogen) 32 mg/dL (9.8-20.1); Bilirubin, Total 1.3 mg/dL (0.2-1.2); Calc. Creatinine Clearance 66 mL/min (70-130); Calcium 8.4 mg/dL (7.8-10.44); Carbon Dioxide 27 mmol/L (23-31); Chloride 107 mmol/L (98-107); Globulin 3.5 g/dL (2.4-3.5); Glucose 201 mg/dL (80-115); Magnesium 2.4 mg/dL (1.6-2.6); Potassium 4.2 mmol/L (3.5-5.1); Protein, Total 6.4 g/dL (5.8-8.1); Sodium 139 mmol/L (136-145)
[2021-06-11] MEDS: HumaLOG 300 UNITS/3 ML VIAL SC PRN ×3 (05:57→17:57)
[2021-06-11] MEDS: Piperacillin/Tazobactam 3.375 GM in Sodium Chloride 0.9% 100 ML IVPB SCH (05:57)
[2021-06-11] MEDS: Mometasone 200 MCG/Formoterol 5 MCG 120 PUFF INHALER INH SCH ×2 (06:54→18:55)
[2021-06-11] MEDS: Lantus 1000 UNITS/10 ML VIAL SC SCH ×2 (08:39→20:40)
[2021-06-11] MEDS: Carvedilol 25 MG TAB PO SCH (08:41)
[2021-06-11] MEDS: Famotidine/PF 20 mg/2ml Vial SLOW IVP SCH ×2 (08:42→20:39)
[2021-06-11] MEDS: Senokot S 8.6-50 MG TAB PO SCH ×2 (08:42→20:41)
[2021-06-11] MEDS: Saccharomyces boulardii 250 MG CAP PO SCH (08:43)
[2021-06-11] MEDS: Lisinopril 10 MG TAB PO SCH (08:43)
[2021-06-11] MEDS: Famotidine 20 MG TAB PO SCH ×2 (08:43→20:40)
[2021-06-11] MEDS: NIFEdipine XL 60 MG TAB PO SCH (08:43)
[2021-06-11] MEDS ORDERED: NIFEdipine XL 90 MG TAB PO SCH (09:00)
[2021-06-11] MEDS ORDERED: Lantus 1000 UNITS/10 ML VIAL SC SCH (09:00)
[2021-06-11] MEDS: Polyethylene Glycol 3350 17 GM Packet PO SCH (20:40)
[2021-06-12] MEDS: Sodium Chloride 0.9% 1,000 ML IV SCH (04:52)
[2021-06-12] MEDS: Mometasone 200 MCG/Formoterol 5 MCG 120 PUFF INHALER INH SCH (07:29)
[2021-06-12] MEDS: Famotidine/PF 20 mg/2ml Vial SLOW IVP SCH (08:46)
[2021-06-12] MEDS: Saccharomyces boulardii 250 MG CAP PO SCH (08:46)
[2021-06-12] MEDS: Famotidine 20 MG TAB PO SCH (08:46)
[2021-06-12] MEDS: Senokot S 8.6-50 MG TAB PO SCH (08:46)
[2021-06-12] MEDS: NIFEdipine XL 60 MG TAB PO SCH (08:47)
[2021-06-12] MEDS: Lantus 1000 UNITS/10 ML VIAL SC SCH (08:47)
[2021-06-12 10:32] LABS: Anion Gap 9 mmol/L (10-20); BUN (Urea Nitrogen) 23 mg/dL (9.8-20.1); Calc. Creatinine Clearance 100 mL/min (70-130); Calcium 8.4 mg/dL (7.8-10.44); Carbon Dioxide 27 mmol/L (23-31); Chloride 109 mmol/L (98-107); Glucose 116 mg/dL (80-115); Potassium 3.7 mmol/L (3.5-5.1); Sodium 141 mmol/L (136-145)
[2021-06-12 11:29] VITALS: BP 179/82; TEMP 98.2
[2021-06-13] MEDS ORDERED: FLU VACC QS2021-22(65YR UP)/PF 240 MCG/0.7 ML SYRINGE IM ONE (09:00)
== END 2021-06-12 14:51 | disposition home or self-care (01) | DRG 418 ==
LOC: ERS 19:24 → SURG A 06-10 01:37 → CCU 06-10 08:43 → 2NO 06-10 11:31
PROVIDERS: ADMIT Surgery; ATTEND Surgery
PROC: 0FT44ZZ Resection of Gallbladder, Percutaneous Endoscopic Approach (ICD-10-PCS; principal; 2021-06-10)
PROC: BF141ZZ Fluoroscopy of Gallbladder, Bile Ducts and Pancreatic Ducts using Low Osmolar Contrast (ICD-10-PCS; 2021-06-10)
DX: K80.00 Calculus of gallbladder with acute cholecystitis without obstruction (principal); N17.9 Acute kidney failure, unspecified; Z68.41 Body mass index [BMI] 40.0-44.9, adult; Z20.822 Contact with and (suspected) exposure to COVID-19; D72.829 Elevated white blood cell count, unspecified; D64.9 Anemia, unspecified; D69.6 Thrombocytopenia, unspecified; E11.9 Type 2 diabetes mellitus without complications; E66.01 Morbid (severe) obesity due to excess calories; G47.33 Obstructive sleep apnea (adult) (pediatric); K59.00 Constipation, unspecified; I25.10 Atherosclerotic heart disease of native coronary artery without angina pectoris; I50.9 Heart failure, unspecified; I11.0 Hypertensive heart disease with heart failure; E78.5 Hyperlipidemia, unspecified; J44.9 Chronic obstructive pulmonary disease, unspecified; Z99.81 Dependence on supplemental oxygen; Z79.4 Long term (current) use of insulin; Z79.899 Other long term (current) drug therapy; Z86.73 Personal history of transient ischemic attack (TIA), and cerebral infarction without residual deficits; Z90.710 Acquired absence of both cervix and uterus; Z90.49 Acquired absence of other specified parts of digestive tract; Z87.891 Personal history of nicotine dependence
CPT/HCPCS: 36415; 36416; 47532; 76705; 80048; 80053; 83735; 85025; 88304; 93005; 93010; 94640; 96365; C1713; J0360; J1100; J1170; J1815; J2405; J2543; J2704; J3010; J3475; J3490; J7050; J7620; Q9961-U8; S0020; S0028; U0002

== ENCOUNTER 2023-02-24 22:37 | Inpatient (IN) | payer MEDICARE, MEDICAID ==
[2023-02-25 00:20] LABS: ALT (SGPT) 9 U/L (8-55); AST (SGOT) 12 U/L (5-34); Albumin 3.4 g/dL (3.4-4.8); Alkaline Phosphatase 105 U/L (40-110); Anion Gap 11 mmol/L (10-20); BUN (Urea Nitrogen) 100 mg/dL (9.8-20.1); Bilirubin, Total 0.4 mg/dL (0.2-1.2); Calc. Creatinine Clearance 0 mL/min (70-130); Calcium 9.1 mg/dL (7.8-10.44); Carbon Dioxide 16 mmol/L (23-31); Chloride 116 mmol/L (98-107); Estimated GFR 10; Globulin 3.6 g/dL (2.4-3.5); Glucose 79 mg/dL (80-115); Potassium 4.8 mmol/L (3.5-5.1); Sodium 138 mmol/L (136-145)
[2023-02-25 03:30] VITALS: BMI 35.7
[2023-02-25] MEDS ORDERED: Ondansetron PF 4 MG/2 ML Vial IVP PRN (06:26)
[2023-02-25] MEDS ORDERED: Acetaminophen 325 MG TAB PO PRN (06:26)
[2023-02-25] MEDS ORDERED: Glucagon 1 MG/ML KIT IM PRN (06:28)
[2023-02-25] MEDS ORDERED: Insulin Regular 300 UNITS/3 ML VIAL SC PRN ×2 (06:28)
[2023-02-25] MEDS ORDERED: Dextrose 50% Abboject 50 ML SYRINGE SLOW IVP PRN (06:28)
[2023-02-25] MEDS ORDERED: Dextrose 5% in Water 1,000 ML IV PRN (06:28)
[2023-02-25] MEDS ORDERED: Ipratropium/Albuterol 3 ML NEB EZPAP PRN (06:31)
[2023-02-25] MEDS ORDERED: Sodium Chloride 0.9% 1,000 ML IV SCH (07:15)
[2023-02-25] MEDS: Heparin 5,000 UNITS/ML VIAL SC SCH ×2 (08:15→20:18)
[2023-02-25] MEDS: Atorvastatin Calcium 40 MG TAB PO SCH (08:21)
[2023-02-25] MEDS: Sodium Bicarbonate 150 MEQ in Dextrose 5% in Water 1,000 ML IV SCH ×2 (08:56→18:41)
[2023-02-25 15:47] LABS: Anion Gap 11 mmol/L (10-20); BUN (Urea Nitrogen) 90 mg/dL (9.8-20.1); Calc. Creatinine Clearance 27 mL/min (70-130); Carbon Dioxide 19 mmol/L (23-31); Chloride 115 mmol/L (98-107); Potassium 4.6 mmol/L (3.5-5.1); Sodium 140 mmol/L (136-145)
[2023-02-25 15:48] LABS: Albumin 3.2 g/dL (3.4-4.8); Calcium 8.5 mg/dL (7.8-10.44); Estimated GFR 16; Glucose 135 mg/dL (80-115); Phosphorus 4.5 mg/dL (2.3-4.7)
[2023-02-25] MEDS ORDERED: Insulin Regular 300 UNITS/3 ML VIAL SC SCH (16:30)
[2023-02-25] MEDS: Insulin Regular 300 UNITS/3 ML VIAL SC SCH (18:04)
[2023-02-25 18:08] LABS: Protein, Urine Random Quant Less than 10 mg/dL (1-14); Sodium, Urine 33 mmol/L (Not Available); Urea Nitrogen, Random Urine 933 mg/dl
[2023-02-26] MEDS: Sodium Bicarbonate 150 MEQ in Dextrose 5% in Water 1,000 ML IV SCH ×2 (00:44→11:31)
[2023-02-26 06:25] LABS: #Eosinphils 0.4 thou/uL (0.0-0.7); #Monocytes 0.7 thou/uL (0.11-0.59); %Basophils 0.4 % (0.0-1.0); %Eosinophils 4.5 % (0.0-10.0); %Lymphocytes 33.8 % (21.0-51.0); %Monocytes 9.1 % (0.0-10.0); %Neutrophils 51.9 % (42.0-75.0); Hematocrit 30.8 % (36.0-47.0); Hemoglobin 9.7 g/dL (12.0-16.0); Mean Corpuscular HGB CONC 31.5 g/dL (32.0-36.0); Mean Corpuscular Hemoglobin 28.6 pg (27.0-31.0); Mean Corpuscular Volume 90.9 fl (78.0-98.0); Mean Platelet Volume 13.9 fL (7.4-10.4); Platelet Count 100 10x3/uL (130-400); RBC Distribution Width 13.8 % (11.5-14.5); Red Blood Cell (RBC) Count 3.39 mill/uL (4.20-5.40); White Blood Cell (WBC) Count 7.8 10x3/uL (4.8-10.8)
[2023-02-26 06:28] LABS: Hemoglobin A1c 5.2 % (4.0-6.0)
[2023-02-26 06:56] LABS: Burr Cells SLIGHT = 2-5 cells HPF (0-1); CellaVision Operator ID lab.abc; Platelet Adequacy Comment Platelets Decreased
[2023-02-26 06:59] LABS: Anion Gap 10 mmol/L (10-20); BUN (Urea Nitrogen) 80 mg/dL (9.8-20.1); Calc. Creatinine Clearance 39 mL/min (70-130); Carbon Dioxide 26 mmol/L (23-31); Chloride 109 mmol/L (98-107); Estimated GFR 25; Glucose 111 mg/dL (80-115); Potassium 3.7 mmol/L (3.5-5.1); Sodium 141 mmol/L (136-145)
[2023-02-26] MEDS: Insulin Regular 300 UNITS/3 ML VIAL SC SCH ×2 (08:48→16:36)
[2023-02-26] MEDS: Atorvastatin Calcium 40 MG TAB PO SCH (08:53)
[2023-02-26] MEDS: Heparin 5,000 UNITS/ML VIAL SC SCH ×2 (08:53→21:58)
[2023-02-26] MEDS ORDERED: Lactated Ringer's 1,000 ML IV SCH (10:45)
[2023-02-27 06:04] LABS: #Eosinphils 0.6 thou/uL (0.0-0.7); #Monocytes 0.8 thou/uL (0.11-0.59); %Basophils 0.2 % (0.0-1.0); %Eosinophils 6.7 % (0.0-10.0); %Lymphocytes 34.9 % (21.0-51.0); %Monocytes 9.9 % (0.0-10.0); %Neutrophils 47.9 % (42.0-75.0); Hematocrit 30.1 % (36.0-47.0); Hemoglobin 9.7 g/dL (12.0-16.0); Mean Corpuscular HGB CONC 32.2 g/dL (32.0-36.0); Mean Corpuscular Hemoglobin 29.3 pg (27.0-31.0); Mean Corpuscular Volume 90.9 fl (78.0-98.0); RBC Distribution Width 13.6 % (11.5-14.5); Red Blood Cell (RBC) Count 3.31 mill/uL (4.20-5.40); White Blood Cell (WBC) Count 8.3 10x3/uL (4.8-10.8)
[2023-02-27 06:19] LABS: Anion Gap 11 mmol/L (10-20); BUN (Urea Nitrogen) 44 mg/dL (9.8-20.1); Calc. Creatinine Clearance 69 mL/min (70-130); Calcium 8.1 mg/dL (7.8-10.44); Carbon Dioxide 28 mmol/L (23-31); Chloride 108 mmol/L (98-107); Estimated GFR 50; Glucose 82 mg/dL (80-115); Phosphorus 2.4 mg/dL (2.3-4.7); Potassium 4.1 mmol/L (3.5-5.1); Sodium 143 mmol/L (136-145)
[2023-02-27] MEDS: Insulin Regular 300 UNITS/3 ML VIAL SC SCH (06:19)
[2023-02-27 06:25] LABS: Iron 35 ug/dL (50-170); Iron Binding Capacity, Total 160 mcg/dL (265-497); Magnesium 1.8 mg/dL (1.6-2.6)
[2023-02-27 07:21] LABS: Platelet Count 96 10x3/uL (130-400)
[2023-02-27 07:22] LABS: Mean Platelet Volume 14.2 fL (7.4-10.4)
[2023-02-27] MEDS ORDERED: Iron, Sodium Ferric Gluconate 250 MG in Sodium Chloride 0.9% 250 ML 250 ML IVPB SCH (07:30)
[2023-02-27 07:36] VITALS: TEMP 97.8
[2023-02-27] MEDS: Atorvastatin Calcium 40 MG TAB PO SCH (08:56)
[2023-02-27 17:04] VITALS: BP 161/81
== END 2023-02-27 18:46 | disposition home health service (06) | DRG 683 ==
LOC: ERS 22:37 → T4-A 02-25 01:31
PROVIDERS: ADMIT Internal Medicine; ATTEND Internal Medicine
DX: N17.9 Acute kidney failure, unspecified (principal); E87.20 Acidosis, unspecified; J44.9 Chronic obstructive pulmonary disease, unspecified; E87.5 Hyperkalemia; I12.9 Hypertensive chronic kidney disease with stage 1 through stage 4 chronic kidney disease, or unspecified chronic kidney disease; E11.22 Type 2 diabetes mellitus with diabetic chronic kidney disease; E66.9 Obesity, unspecified; E86.0 Dehydration; E11.21 Type 2 diabetes mellitus with diabetic nephropathy; E86.9 Volume depletion, unspecified; E11.65 Type 2 diabetes mellitus with hyperglycemia; D63.1 Anemia in chronic kidney disease; N18.30 Chronic kidney disease, stage 3 unspecified; D69.6 Thrombocytopenia, unspecified; Z90.49 Acquired absence of other specified parts of digestive tract; Z98.890 Other specified postprocedural states; Z87.891 Personal history of nicotine dependence; Z91.040 Latex allergy status; Z79.4 Long term (current) use of insulin; Z79.899 Other long term (current) drug therapy; Z68.35 Body mass index [BMI] 35.0-35.9, adult
CPT/HCPCS: 36415; 36416; 74176; 80048; 80069; 82040; 82550; 82570; 82728; 83036; 83540; 83550; 83735; 84100; 84156; 84300; 84540; 85025; 93005; J1644; J2916; J7050; J7070; J7120

== ENCOUNTER 2024-05-08 23:01 | Inpatient (IN) | payer MEDICARE, MEDICAID ==
[2024-05-09] MEDS ORDERED: Acetaminophen 325 MG TAB PO PRN (01:52)
[2024-05-09] MEDS ORDERED: Menthol/Zinc Oxide 283 GM BOT TOP PRN (02:23)
[2024-05-09] MEDS ORDERED: Nystatin Powder 15 GM BOT TOP PRN (02:57)
[2024-05-09] MEDS ORDERED: Albuterol 2.5 MG (3 mL) NEB NEB PRN ×2 (02:58→03:16)
[2024-05-09] MEDS: Furosemide 40 MG (4 mL) VIAL SLOW IVP SCH (03:07)
[2024-05-09] MEDS: hydrALAZINE 20 MG/ML VIAL SLOW IVP PRN (03:07)
[2024-05-09 03:10] VITALS: BMI 33.7
[2024-05-09] MEDS ORDERED: Dextrose 5% in Water 1,000 ML IV PRN (03:13)
[2024-05-09] MEDS ORDERED: Dextrose 50% Abboject 50 ML SYRINGE SLOW IVP PRN (03:13)
[2024-05-09] MEDS ORDERED: Glucagon 1 MG/ML KIT IM PRN (03:13)
[2024-05-09] MEDS: Pantoprazole DR 40 MG TAB PO SCH (03:17)
[2024-05-09 05:56] LABS: #Basophils Less than 0.03 10x3/uL (0.0-0.2); #Eosinophils Less than 0.03 10x3/uL (0.0-0.7); %Basophils 0.2 % (0.0-1.0); %Eosinophils 0.2 % (0.0-10.0); %Lymphocytes 8.9 % (21.0-51.0); %Monocytes 1.6 % (0.0-10.0); %Neutrophils 88.6 % (42.0-75.0); Hematocrit 40.1 % (36.0-47.0); Mean Corpuscular HGB CONC 29.9 g/dL (32.0-36.0); Mean Corpuscular Hemoglobin 28.2 pg (27.0-31.0); Mean Corpuscular Volume 94.4 fL (78.0-98.0); Mean Platelet Volume 12.5 fL (7.4-10.4); Platelet Count 134 10x3/uL (130-400); RBC Distribution Width 12.7 % (11.5-14.5); Red Blood Cell (RBC) Count 4.25 mill/uL (4.20-5.40)
[2024-05-09 06:00] LABS: ALT (SGPT) 11 U/L (8-55); AST (SGOT) 24 U/L (5-34); Albumin 3.4 g/dL (3.4-4.8); Alkaline Phosphatase 124 U/L (40-110); Anion Gap 18 mmol/L (10-20); BUN (Urea Nitrogen) 25 mg/dL (9.8-20.1); Bilirubin, Total 0.3 mg/dL (0.2-1.2); Calc. Creatinine Clearance 56 mL/min (70-130); Calcium 8.8 mg/dL (7.8-10.44); Carbon Dioxide 20 mmol/L (23-31); Chloride 102 mmol/L (98-107); Estimated GFR 41; Globulin 4.8 g/dL (2.4-3.5); Glucose 210 mg/dL (83-110); Potassium 4.7 mmol/L (3.5-5.1); Protein, Total 8.2 g/dL (5.8-8.1); Sodium 135 mmol/L (136-145)
[2024-05-09] MEDS ORDERED: Amlodipine 5 MG TAB PO SCH (09:00)
[2024-05-09] MEDS: Enoxaparin 40 MG (0.4 mL) SYRINGE SC SCH (09:13)
[2024-05-09] MEDS: NIFEdipine XL 90 MG ER.TAB PO SCH (09:13)
[2024-05-09] MEDS: Atorvastatin Calcium 40 MG TAB PO SCH (09:13)
[2024-05-09] MEDS: Furosemide 40 MG TAB PO SCH (09:13)
[2024-05-09] MEDS: Carvedilol 25 MG TAB PO SCH (09:13)
[2024-05-09] MEDS: Insulin Glargine 30 UNITS/0.3 ML VIAL SC SCH (09:14)
[2024-05-09] MEDS: Acetaminophen 325 MG TAB PO PRN (10:16)
[2024-05-09] MEDS: Oseltamivir 6 MG/ML ORAL SUSP PO SCH (10:19)
[2024-05-09] MEDS: Insulin Lispro 100 UNIT/ML 10 ML VIAL SC PRN (12:30)
[2024-05-09] MEDS ORDERED: Sodium Chloride 0.9% 500 ML IV SCH (17:00)
[2024-05-09] MEDS: Lactated Ringer's 500 ML IV SCH (17:07)
[2024-05-09] MEDS: Ipratropium/Albuterol 3 ML NEB NEB PRN (21:39)
[2024-05-10 08:08] LABS: ALT (SGPT) 8 U/L (8-55); AST (SGOT) 22 U/L (5-34); Albumin 2.9 g/dL (3.4-4.8); Alkaline Phosphatase 98 U/L (40-110); Anion Gap 12 mmol/L (10-20); BUN (Urea Nitrogen) 49 mg/dL (9.8-20.1); Bilirubin, Total 0.2 mg/dL (0.2-1.2); Calc. Creatinine Clearance 34 mL/min (70-130); Calcium 7.8 mg/dL (7.8-10.44); Carbon Dioxide 24 mmol/L (23-31); Chloride 104 mmol/L (98-107); Estimated GFR 22; Glucose 151 mg/dL (83-110); Protein, Total 6.9 g/dL (5.8-8.1); Sodium 136 mmol/L (136-145)
[2024-05-10] MEDS: Ipratropium/Albuterol 3 ML NEB NEB SCH (10:35)
[2024-05-10] MEDS: Lactated Ringer's 500 ML IV SCH (12:20)
[2024-05-10] MEDS: Mometasone 100 MCG/Formoterol 5 MCG 120 PUFF INHALER INH SCH (20:06)
[2024-05-11 08:16] LABS: Anion Gap 13 mmol/L (10-20); BUN (Urea Nitrogen) 43 mg/dL (9.8-20.1); Calc. Creatinine Clearance 50 mL/min (70-130); Calcium 7.6 mg/dL (7.8-10.44); Carbon Dioxide 24 mmol/L (23-31); Chloride 105 mmol/L (98-107); Estimated GFR 36; Glucose 113 mg/dL (83-110); Potassium 3.9 mmol/L (3.5-5.1); Sodium 138 mmol/L (136-145)
[2024-05-11] MEDS: Enoxaparin 30 MG (0.3 mL) SYRINGE SC SCH (09:11)
[2024-05-11] MEDS: Ipratropium/Albuterol 3 ML NEB NEB SCH (10:45)
[2024-05-11] MEDS: NIFEdipine XL 90 MG ER.TAB PO SCH ×2 (12:30→12:38)
[2024-05-12] MEDS ORDERED: FLU (Fluad Triv) TS24-25 (65UP)/MF59C/PF 45 MCG/0.5 ML Syringe IM ONE (09:00)
[2024-05-12] MEDS: Enoxaparin 40 MG (0.4 mL) SYRINGE SC SCH (09:09)
[2024-05-12 12:41] LABS: Anion Gap 14 mmol/L (10-20); BUN (Urea Nitrogen) 43 mg/dL (9.8-20.1); Calc. Creatinine Clearance 52 mL/min (70-130); Carbon Dioxide 22 mmol/L (23-31); Chloride 105 mmol/L (98-107); Estimated GFR 38; Glucose 180 mg/dL (83-110); Potassium 3.8 mmol/L (3.5-5.1); Sodium 137 mmol/L (136-145)
[2024-05-12] MEDS: Ipratropium/Albuterol 3 ML NEB NEB SCH (14:11)
[2024-05-13 05:20] LABS: Anion Gap 11 mmol/L (10-20); BUN (Urea Nitrogen) 43 mg/dL (9.8-20.1); Calc. Creatinine Clearance 50 mL/min (70-130); Calcium 7.9 mg/dL (7.8-10.44); Carbon Dioxide 24 mmol/L (23-31); Chloride 105 mmol/L (98-107); Estimated GFR 41; Glucose 137 mg/dL (83-110); Potassium 3.7 mmol/L (3.5-5.1); Sodium 136 mmol/L (136-145)
[2024-05-13] MEDS: Ipratropium/Albuterol 3 ML NEB NEB SCH (08:06)
[2024-05-13] MEDS: predniSONE 20 MG TAB PO SCH (12:00)
[2024-05-13] MEDS: Insulin Regular, Human 100 UNIT/ML 10 ML VIAL SC PRN (21:16)
[2024-05-14 04:45] LABS: Anion Gap 14 mmol/L (10-20); BUN (Urea Nitrogen) 46 mg/dL (9.8-20.1); Calc. Creatinine Clearance 61 mL/min (70-130); Calcium 8.2 mg/dL (7.8-10.44); Carbon Dioxide 24 mmol/L (23-31); Chloride 106 mmol/L (98-107); Estimated GFR 46; Glucose 193 mg/dL (83-110); Potassium 4.5 mmol/L (3.5-5.1); Sodium 139 mmol/L (136-145)
[2024-05-14] MEDS: predniSONE 20 MG TAB PO SCH (08:44)
[2024-05-14 16:20] VITALS: BP 144/76; TEMP 98.1
== END 2024-05-14 16:20 | DRG 191 ==
LOC: OBS 05-09 01:40 → OBSVTOIN 05-11 14:55
PROVIDERS: ADMIT Family Medicine; ATTEND Family Medicine
DX: J44.1 Chronic obstructive pulmonary disease with (acute) exacerbation (principal); I13.0 Hypertensive heart and chronic kidney disease with heart failure and stage 1 through stage 4 chronic kidney disease, or unspecified chronic kidney disease; J10.1 Influenza due to other identified influenza virus with other respiratory manifestations; I50.9 Heart failure, unspecified; E66.01 Morbid (severe) obesity due to excess calories; E11.22 Type 2 diabetes mellitus with diabetic chronic kidney disease; N18.30 Chronic kidney disease, stage 3 unspecified; Z91.040 Latex allergy status; Z79.899 Other long term (current) drug therapy; Z90.49 Acquired absence of other specified parts of digestive tract; Z98.41 Cataract extraction status, right eye; Z98.42 Cataract extraction status, left eye; Z87.891 Personal history of nicotine dependence
CPT/HCPCS: 36415; 36416; 80048; 80053; 85025; 94640; J0360; J1650; J1815; J1940; J7030; J7120; J7512; J7620